=== PATIENT | female | born 1955 | race Caucasian/White ===

== ENCOUNTER 2016-04-18 07:51 | Day surgery (SDC) | payer BC ==
[2016-04-17 10:39] VITALS: BMI 54.6
[~2016-04-18 07:51] MED LIST: LACTATED RINGERS SOLUTION 1,000 ML IV SCH; ONDANSETRON 4 MG/2 ML VIAL IVPUSH PRN; PROMETHAZINE HCL 25 MG/1 ML VIAL IVPUSH PRN
[2016-04-18] MEDS ORDERED: SUCCINYLCHOLINE CHLORIDE 200 MG/10 ML VIAL ONE (08:28)
[2016-04-18] MEDS ORDERED: ROCURONIUM BROMIDE 50 MG/5 ML VIAL ONE (08:28)
[2016-04-18] MEDS ORDERED: ceFAZolin SODIUM 1 GM VIAL ONE (08:29)
[2016-04-18] MEDS ORDERED: ONDANSETRON 4 MG/2 ML VIAL ONE (08:31)
[2016-04-18] MEDS ORDERED: DEXAMETHASONE SOD PHOSPHATE 4 MG/1 ML VIAL ONE (08:31)
[2016-04-18] MEDS ORDERED: PROPOFOL 20 ML ONE ×4 (08:33)
[2016-04-18] MEDS ORDERED: SEVOFLURANE 250 ML BTL ONE (09:00)
[2016-04-18] MEDS ORDERED: ACETAMINOPHEN INJECTION 100 ML IVPB ONE (09:00)
[2016-04-18] MEDS ORDERED: DESFLURANE GAS 240 ML BOTTLE IH ONE (09:00)
[2016-04-18] MEDS ORDERED: LIDOCAINE HCL 2% (20ML MULTI-DOSE VIAL) NR ONE (09:01)
[2016-04-18] MEDS ORDERED: GENTAMICIN SO4 80 MG/2 ML VIAL ONE (09:21)
[2016-04-18] MEDS ORDERED: BUPIVACAINE HCL/PF 2.5 MG/ML - 30 ML VIAL IJ ONE (09:21)
[2016-04-18] MEDS ORDERED: POLYMYXIN B SULFATE 500,000 UNIT VIAL ONE (09:22)
[2016-04-18] MEDS ORDERED: SCOPOLAMINE HYDROBROMIDE 1 PATCH PATCH.TD72 ONE (09:32)
[2016-04-18] MEDS ORDERED: MIDAZOLAM HCL 2 MG/2 ML SINGLE DOSE VIAL ONE (09:32)
[2016-04-18] MEDS ORDERED: FAMOTIDINE 20 MG/50 ML IVPB 50 ML IVPB ONE (09:54)
[2016-04-18] MEDS ORDERED: MINERAL OIL/PETROLATUM,WHITE 3.5 GM TUBE ONE (10:04)
[2016-04-18] MEDS ORDERED: ePHEDrine SULFATE 50 MG/1 ML AMPULE ONE (10:08)
[2016-04-18] MEDS ORDERED: SODIUM CHLORIDE 0.9% P/F 10 ML VIAL IJ ONE (10:16)
[2016-04-18] MEDS ORDERED: PHENYLEPHRINE HCL 10 MG/1 ML SINGLE DOSE VIAL ONE (10:16)
[2016-04-18] MEDS ORDERED: GLYCOPYRROLATE 0.2 MG/1 ML VIAL ONE (10:49)
[2016-04-18] MEDS ORDERED: NEOSTIGMINE METHYLSULFATE 0.5 MG/ML - 10 ML MDV ONE (10:49)
[2016-04-18] MEDS ORDERED: BUPIVACAINE HCL/PF 0.25% (2.5MG/ML) 10 ML VIAL IJ ONE (11:11)
[2016-04-18] MEDS ORDERED: oxyCODONE HCL 5 MG TABLET PO PRN (11:46)
[2016-04-18 11:53] LABS: MCH 28.2 pg (25.7-33.7); MCHC 33.1 g/dl (32.0-36.0); MEAN PLT VOLUME 9.2 fl (7.5-11.1); PLATELET COUNT 200 K/MM3 (134-434); RDW 12.4 % (11.6-15.6); WHITE BLOOD COUNT 7.8 K/mm3 (4.0-10.0)
[2016-04-18] MEDS ORDERED: PROMETHAZINE HCL 50 MG/1 ML AMP IM PRN (12:02)
[2016-04-18] MEDS ORDERED: MEPERIDINE HCL CARPU-JECT 50 MG/1 ML DISP.SYRIN IM PRN (12:02)
[2016-04-18] MEDS ORDERED: TRIMETHOBENZAMIDE HCL 200MG/2ML INJ IM PRN (12:02)
[2016-04-18] MEDS ORDERED: SODIUM CHLORIDE 1,000 ML IV SCH (12:15)
[2016-04-18 12:27] LABS: ALBUMIN 4.1 g/dl (3.5-5.0); ALK PHOS 55 U/L (32-92); ANION GAP 8 (8-16); BILIRUBIN,TOTAL 0.6 mg/dl (0.2-1.0); CALCIUM 9.2 mg/dl (8.4-10.2); CO2 28 mmol/L (22-28); CREATININE 0.9 mg/dl (0.6-1.3); GLUCOSE,RANDOM 126 mg/dl (74-106); SGOT/AST 35 U/L (10-42); SGPT/ALT 33 U/L (10-40); TOT PROT 7.2 g/dl (6.4-8.3)
[2016-04-18] MEDS ORDERED: PROMETHAZINE HCL 25 MG/1 ML VIAL ONE (12:57)
[2016-04-18 14:22] VITALS: TEMP 98.5
[2016-04-18] MEDS ORDERED: HYDROmorphone *PCA* 10MG/50ML DISP.SYRIN PCA SCH (16:15)
[2016-04-18 16:18] VITALS: BP 133/72; PULSE 92
[2016-04-18] MEDS ORDERED: ENOXAPARIN NA (PORCINE) 40 MG/0.4 ML DISP.SYRIN SQ ONE (17:00)
[2016-04-18] MEDS ORDERED: FAMOTIDINE 20 MG/50 ML IVPB 50 ML IVPB SCH (22:00)
--- NOTE | 2016-04-21 14:07 | OP ---
DATE OF OPERATION: 04/18/2016 PROCEDURES PERFORMED: 1. Gastric band for gastric restriction. 2. Wedge biopsy of the left lobe of the liver. 3. Diagnostic laparoscopy. PREOPERATIVE DIAGNOSIS: 1. Morbid obesity. 2. Elevated liver function test. POSTOPERATIVE DIAGNOSIS: 1. Morbid obesity. 2. Elevated liver function test. 3. Hepatomegaly. OPERATING PHYSICIAN: Va Serra MD SHIP WORKER: David Manzo MD ANESTHESIA: General. OPERATIVE PROCEDURE: The patient was brought into the operating room and placed on the operating table in the supine position. All precautions were taken initially including padding for the back and the feet, and Venodyne boots were placed on both lower extremities. At that point, the abdomen was prepped and draped in the usual manner. A Veress needle was placed in the left upper quadrant and pneumoperitoneum was established. A no. 12 bladeless trocar was placed in the left upper quadrant . Through the trocar, a laparoscopic camera was placed. Under direct vision, no. 5 and no. 15 trocars were placed in the right upper quadrant and a no. 12 bladeless trocar below the left costal margin. A Laura liver retractor was then placed in the epigastrium to retract the left lobe of the liver. The patient was then placed in 20-degree reverse Trendelenburg position. The marketing communications assistant surgeon retracted the omentum downward or inferiorly in order to provide visualization of the left upper quadrant. As the operating surgeon retracted the stomach from the patient's right side, electrocautery was used to score the peritoneum over the left esophagogastric junction. This continued superiorly until the left lima of the diaphragm was noted. The stomach was then pulled to the patient's left side by the marketing communications assistant surgeon as the caudate lobe of the liver was noted. An opening was made in an avascular plane and then the right lima of the diaphragm was noted. The peritoneum anterior tip was scored with electrocautery, and a laparoscopic instrument was then used to make a blunt tunnel from the right to left lima until it was free in the left upper quadrant of the abdomen. The gastric band, which was an AP standard band, was then appropriately and placed in the no. 15 port site. The laparoscopic instrument were pulled and withdrawn to the patient's right side. The in the band buckle were tightly cinched down and the band rotated to the patient' s right side. The laparoscopic instrument easily fit between the band and the anterior stomach wall. The band was then stomach above and below the band tied over the band. The was completed. At this point, attention was directed to the liver, which was noted to be enlarged and had elevated liver function. With the electrocautery turned high, a portion on the edge of the left lobe was biopsied. This wedge biopsy was done as first encapsulated in the parenchyma, was dissected with electrocautery, and specimen sent off to [facility]. The parenchyma bleeding was then controlled easily with electrocautery. Under direct visualization, all trocars were removed and pneumoperitoneum released. A no. 15 port was then extended laterally, and dissection continued down to the right anterior rectus muscle fascia. A 2-0 Prolene suture was placed on all four sides, and the port was then attached to the right anterior rectus muscle. All trocar sites were infiltrated with 4% Marcaine and closed with 4-0 Biosyn in a subcuticular fashion. Dressings were applied. The patient was awoken from anesthesia and transferred out of the operating room to the recovery room in stable condition. ESTIMATED BLOOD LOSS: Thirty mL. VA SERRA M.D. [id number]
--- NOTE | 2016-04-23 09:40 | PATH ---
Surgical Pathology Report Patient Name: SWETA BECERRA Med. Rec. #: [id number] /Age/Gender: 1955 (Age: 60) / F Account: [id number] Location: [facility] Taken: 04/21/2016 Received: 04/21/2016 Reported: 04/23/2016 Physicians: Frankie Farrar M.D. Specimen(s) Received LIVER BIOPSY Clinical History Morbid obesity Final Diagnosis LIVER, WEDGE BIOPSY: SUBCAPSULAR PORTION OF BENIGN LIVER TISSUE WITH EXTENSIVE THERMAL ARTIFACT OBSCURING HISTOLOGIC DETAIL. AREAS OF MACROVESICULAR STEATOSIS ARE PRESENT. IRON STAIN SHOWS NO INCREASED IRON DEPOSITION. TRICHROME STAIN IS NONCONTRIBUTORY. Comment: Recommend correlation with clinical and radiologic findings and follow up as clinically indicated. Electronically Signed Mendel Booker M.D. Gross Description Received in formalin, labeled "liver biopsy," are 3 michele rivers, irregular soft tissue fragments ranging from 0.6-1.0 cm in greatest dimension. The specimens are submitted in toto in one cassette. 04/21/201604/21/2016
== END 2016-04-18 16:30 | disposition home or self-care (01) ==
LOC: FASU 07:51
PROVIDERS: ATTEND Surgery
PROC: 0FB24ZX Excision of Left Lobe Liver, Percutaneous Endoscopic Approach, Diagnostic (ICD-10-PCS; 2016-04-18)
PROC: 0DV64CZ Restriction of Stomach with Extraluminal Device, Percutaneous Endoscopic Approach (ICD-10-PCS; principal; 2016-04-18 10:21)
DX: E66.01 Morbid (severe) obesity due to excess calories (principal); Z68.43 Body mass index [BMI] 50.0-59.9, adult; R94.5 Abnormal results of liver function studies; R16.0 Hepatomegaly, not elsewhere classified
CPT/HCPCS: 36415; 74241-TC; 80053; 85027; 88307-TC; 88313-TC; 94010; 94760

== ENCOUNTER 2016-05-26 10:12 | Day surgery (SDC) | payer BC ==
[2016-05-26 10:33] VITALS: BMI 50.0
[2016-05-26] MEDS ORDERED: PROPOFOL 20 ML ONE (10:36)
[2016-05-26 10:42] VITALS: TEMP 98.4
[2016-05-26 12:38] VITALS: BP 103/63; PULSE 72
--- NOTE | 2016-05-27 11:15 | PATH ---
Surgical Pathology Report Patient Name: SEWTA BECERRA [facility]. Rec. #: [id number] /Age/Gender: 1955 (Age: 60) / F Account: [id number] Location: [facility] Taken: 05/26/2016 Received: 05/26/2016 Reported: 05/27/2016 Physicians: Gage Valdez M.D. Specimen(s) Received A: BX DUODENUM B: BX ANTRUM Clinical History GERD Rule out celiac disease, gastritis Final Diagnosis A. DUODENUM, BIOPSY: DUODENAL MUCOSA WITH NO PATHOLOGIC CHANGES. NO HISTOLOGIC EVIDENCE OF GLUTEN SENSITIVE ENTEROPATHY (CELIAC SPRUE) IDENTIFIED. B. STOMACH, ANTRUM, BIOPSY: MILD TO MODERATE CHRONIC GASTRITIS. IMMUNOSTAIN FOR H. PYLORI IS NEGATIVE. Electronically Signed Mendel Booker M.D. Gross Description A. Received in formalin, labeled "duodenum" are 2 michele, irregular portions of soft tissue measuring 0.2 and 0.3 cm. in greatest dimension. The specimens are submitted in toto in one cassette. B. Received in formalin, labeled "antrum" are 2 michele, irregular portions of soft tissue averaging 0.4 cm. in greatest dimension. The specimens are submitted in toto in one cassette. 05/26/201605/26/2016
== END 2016-05-26 13:00 | disposition home or self-care (01) ==
LOC: FASU-ENDO 10:12
PROVIDERS: ATTEND Internal Medicine Gastroenterology
PROC: 0DB98ZX Excision of Duodenum, Via Natural or Artificial Opening Endoscopic, Diagnostic (ICD-10-PCS; principal; 2016-05-26 11:33)
PROC: 0DB68ZX Excision of Stomach, Via Natural or Artificial Opening Endoscopic, Diagnostic (ICD-10-PCS; 2016-05-26 11:33)
DX: K29.50 Unspecified chronic gastritis without bleeding (principal); Z98.84 Bariatric surgery status
CPT/HCPCS: 88305-TC; 88342-TC

== ENCOUNTER 2022-12-01 12:12 | Day surgery (SDC) | payer BC ==
[2022-11-28 14:37] VITALS: BMI 50.5
[2022-12-01 12:36] VITALS: TEMP 98
[2022-12-01 13:23] VITALS: RESP 18
[2022-12-01 13:27] VITALS: BP 138/68; PULSE 85
== END 2022-12-01 13:55 | disposition home or self-care (01) ==
LOC: FASU-ENDO 12:12
PROVIDERS: ATTEND Internal Medicine Gastroenterology
PROC: 0DB68ZX Excision of Stomach, Via Natural or Artificial Opening Endoscopic, Diagnostic (ICD-10-PCS; 2022-12-01)
PROC: 0DB48ZX Excision of Esophagogastric Junction, Via Natural or Artificial Opening Endoscopic, Diagnostic (ICD-10-PCS; principal; 2022-12-01 12:48)
DX: Z01.818 Encounter for other preprocedural examination (principal); K29.50 Unspecified chronic gastritis without bleeding; K31.9 Disease of stomach and duodenum, unspecified; R12 Heartburn
CPT/HCPCS: 88305-TC; 88342-TC